=== PATIENT | female | born 1985 | race Caucasian/White ===

== ENCOUNTER 2020-03-14 18:14 | Emergency (ER) | payer MEDICAID ==
[~2020-03-14] VITALS: Ht 177.8 cm; Wt 129.2 kg
[~2020-03-14 18:14] MED LIST: NO HOME MEDS
[2020-03-14 18:16] VITALS: BP 153/89
[2020-03-14] MEDS ORDERED: CYCL-1 PO (19:07)
== END 2020-03-14 19:14 | disposition home or self-care (01) ==
LOC: ER 18:15
DX: S46.912A Strain of unspecified muscle, fascia and tendon at shoulder and upper arm level, left arm, initial encounter (principal); M62.838 Other muscle spasm; K21.9 Gastro-esophageal reflux disease without esophagitis; Z98.891 History of uterine scar from previous surgery; Z88.1 Allergy status to other antibiotic agents; Z88.8 Allergy status to other drugs, medicaments and biological substances; Z79.899 Other long term (current) drug therapy; X58.XXXA Exposure to other specified factors, initial encounter; Y93.89 Activity, other specified; Y92.89 Other specified places as the place of occurrence of the external cause; Y99.8 Other external cause status
CPT/HCPCS: 99283

== ENCOUNTER 2021-08-26 09:14 | Emergency (ER) | payer MEDICAID ==
[~2021-08-26] VITALS: Ht 175.3 cm; Wt 118.2 kg
[~2021-08-26 09:14] MED LIST changes: +CYCL-1 PO
[2021-08-26 09:26] VITALS: BP 139/76
[2021-08-26] MEDS ORDERED: acetaminophen 325mg tablet PO ONE (10:30)
[2021-08-26] MEDS ORDERED: DEXAMETHASONE 6 MG TABLET PO SCH (10:30)
== END 2021-08-26 10:25 | disposition home or self-care (01) ==
LOC: ER 09:14
DX: J02.9 Acute pharyngitis, unspecified (principal); K21.9 Gastro-esophageal reflux disease without esophagitis; Z88.1 Allergy status to other antibiotic agents; Z79.899 Other long term (current) drug therapy
CPT/HCPCS: 87081; 87880; 99283

== ENCOUNTER 2023-11-02 20:52 | Emergency (ER) | payer BC, MEDICAID ==
[~2023-11-02] VITALS: Ht 177.8 cm; Wt 118.0 kg
[2023-11-02 20:56] VITALS: TEMP 98.4
[2023-11-02] MEDS ORDERED: proMETHazine DM oral syrup 5ml UD PO STA (22:20)
[2023-11-02] MEDS ORDERED: PROM118S5 PO (22:27)
[2023-11-02] MEDS ORDERED: AZIT250T PO (22:27)
[2023-11-02] MEDS ORDERED: PRED20TA PO (22:27)
[2023-11-02] MEDS: dexamethasone sod phosphate 10mg/ml inj PO STA (22:28)
[2023-11-02] MEDS: ipratropium/albuterol 3ml nebule NEB STA (22:39)
[2023-11-02 22:40] VITALS: PULSE 99; RESP 18; O2SAT 96
[2023-11-02 22:46] VITALS: PULSE 100; RESP 18; O2SAT 96
[2023-11-02] MEDS: proMETHazine DM oral syrup 5ml UD PO STA (22:49)
[2023-11-02 22:59] VITALS: BP 139/83; PULSE 101; RESP 20; O2SAT 95
== END 2023-11-02 23:00 | disposition home or self-care (01) ==
LOC: ER 20:53
DX: J20.9 Acute bronchitis, unspecified (principal); K21.9 Gastro-esophageal reflux disease without esophagitis; Z88.1 Allergy status to other antibiotic agents; Z88.8 Allergy status to other drugs, medicaments and biological substances; Z79.899 Other long term (current) drug therapy; Z98.890 Other specified postprocedural states; Z20.822 Contact with and (suspected) exposure to COVID-19
CPT/HCPCS: 71045; 94640; 99283; J1100